=== PATIENT | female | born 1985 | race American Indian/Alaskan Native ===

== ENCOUNTER 2020-06-17 13:18 | Emergency (ER) | payer SELFPAY ==
[2020-06-17 14:24] VITALS: BP 125/78
--- NOTE | 2020-06-17 14:31 | Emergency Department Report ---
Chief Complaint: Medical Clearance Stated Complaint: CHECK UP Time Seen by Provider: 06/17/20 14:24 - HPI History of Present Illness: Patient is a 35-year-old female presents emergency room with complaints of a complication at the plasma donation center. She states that yesterday she was donating plasma and that the IV had moved from the vein and there was a little bit of clotting and bleeding present. She states that they remove the IV and there was a small amount of bleeding. She states that they gave her back her blood in her other arm. She states that she has some mild discomfort. She denies any fever, redness, increased warmth. She denies any numbness or weakness. Vitals are normal On exam: Non toxic appearing, no acute distress atraumatic, normocephalic moist mucus membranes No respiratory distress, no accessory muscle use A&O x4, no focal neuro deficit skin is warm, dry, intact, small abrasion and 0.5 cm area of ecchymosis present to the left antecubital fossa, no hematoma, no erythema, no increased warmth, no tracking of the skin, neurovascularly intact, 2+ strong distal pulses, normal right antecubital fossa Patient is presenting for checkup of a IV site where she was donating plasma There is a small area of ecchymosis but no hematoma No signs of infection Discussed supportive care and symptomatic treatment with patient Patient be referred to primary care doctor for reexamination Discussed strict return precautions Medical screening examination performed there is no threat to life or limb at this time - Exam Vital Signs: Vital Signs 06/17/20 14:18 Temperature 98.3 F Pulse Rate 77 Respiratory 18 Rate Blood Pressure 125/78 O2 Sat by Pulse 99 Oximetry MSE screening note: Focused history and physical exam performed. Due to findings the following was ordered: ED Disposition for MSE Clinical Impression: Encounter for medical screening examination Disposition: Z-07 MED SCREENING EXAM-LEFT Is pt being admited?: No Does the pt Need Aspirin: No Condition: Stable Instructions: RICE Therapy (ED) Additional Instructions: Please keep area clean and dry. May use an Silas wrap [id number] but do not wear too tightly and do not wear while sleeping. May use ice for 15 minutes at a time, rest, elevation of the arm, heating pad. Follow-up with your primary care doctor for reexamination. Return to emergency room for any new or worse anmol symptoms. Referrals: WANDA GAITAN MD [Staff Physician] - 2-3 Days [facility] [Provider Group] - 2-3 Days [facility], [LAB/CONTRACT] - 2-3 Days Time of Disposition: 14:30 Print Language: SYRIAC
== END 2020-06-17 14:59 | disposition left against medical advice (07) ==
LOC: ED 13:18
DX: Z13.9 Encounter for screening, unspecified (principal); Z53.21 Procedure and treatment not carried out due to patient leaving prior to being seen by health care provider

== ENCOUNTER 2021-09-07 11:21 | Emergency (ER) | payer SELFPAY ==
[2021-09-07 12:09] VITALS: BP 119/58
--- NOTE | 2021-09-07 14:50 | Emergency Department Report ---
ED Back Pain/Injury HPI - General Chief Complaint: Back Pain/Injury Stated Complaint: BACK PAIN Time Seen by Provider: 09/07/21 14:15 Source: patient Mode of arrival: Ambulatory Limitations: No Limitations - History of Present Illness Initial Comments: Patient is a 36-year-old female presents emergency room with complaints of right lower back pain that exacerbated over the last few days. She states that she has had intermittent back pain and this area for several years. 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 She denies any fall, injury, trauma. She denies any urinary symptoms, fever, nausea, vomiting, diarrhea, abdominal pain. No past medical history. No allergies medications. - Related Data Previous Rx's Medication Instructions Recorded Last Taken Type EPINEPHrine [Epipen 2-Zak] 0.3 mg IM ONCE PRN #2 applicatio 09/27/14 Unknown Rx Famotidine [Pepcid] 20 mg PO BID #30 tablet 09/27/14 Unknown Rx Prednisone [Prednisone 10 mg 10 mg PO .TAPER #1 tab.ds.pk 09/27/14 Unknown Rx (6-Day Pack, 21 Tabs)] diphenhydrAMINE [Benadryl] 25 mg PO Q6HR #20 capsule 09/27/14 Unknown Rx Menthol/Camphor [[place] 1 applicatio TP BID #18 gm 09/07/21 Unknown Rx Ointment] Naproxen 375 mg PO BID PRN #20 tab 09/07/21 Unknown Rx methOCARBAMOL [Robaxin TAB] 500 mg PO BID PRN #20 tab 09/07/21 Unknown Rx Allergies Allergy/AdvReac Type Severity Reaction Status Date / Time No Known Allergies Allergy Unverified 09/27/14 09:48 ED Review of Systems ROS: Stated complaint: BACK PAIN Other details as noted in HPI Comment: All other systems reviewed and negative ED Past Medical Hx - Past Medical History Previous Medical History?: No - Surgical History Past Surgical History?: No - Social History Smoking Status: Current Every Day Smoker - Medications Home Medications: Home Medications Medication Instructions Recorded Confirmed Last Taken Type EPINEPHrine [Epipen 2-Zak] 0.3 mg IM ONCE PRN #2 applicatio 09/27/14 Unknown Rx Famotidine [Pepcid] 20 mg PO BID #30 tablet 09/27/14 Unknown Rx Prednisone [Prednisone 10 mg 10 mg PO .TAPER #1 tab.ds.pk 09/27/14 Unknown Rx (6-Day Pack, 21 Tabs)] diphenhydrAMINE [Benadryl] 25 mg PO Q6HR #20 capsule 09/27/14 Unknown Rx Menthol/Camphor [[place] 1 applicatio TP BID #18 gm 09/07/21 Unknown Rx Ointment] Naproxen 375 mg PO BID PRN #20 tab 09/07/21 Unknown Rx methOCARBAMOL [Robaxin TAB] 500 mg PO BID PRN #20 tab 09/07/21 Unknown Rx ED Physical Exam - General Limitations: No Limitations General appearance: alert, in no apparent distress - Head Head exam: Present: atraumatic, normocephalic - Eye Eye exam: Present: normal appearance - ENT ENT exam: Present: mucous membranes moist - Neck Neck exam: Present: normal inspection, full ROM. Absent: tenderness, meningismus - Respiratory Respiratory exam: Present: normal lung sounds bilaterally. Absent: respiratory distress, wheezes, rales, rhonchi, stridor, chest wall tenderness, accessory muscle use, decreased breath sounds, prolonged expiratory - Cardiovascular Cardiovascular Exam: Present: regular rate, normal rhythm, normal heart sounds. Absent: systolic murmur, diastolic murmur, rubs, gallop - Back Exam Back exam: Present: normal inspection, full ROM, paraspinal tenderness (right sided lumbar paraspinal ttp, no midline c-spine, t-spine or l-spine ttp, no step offs, no deformities). Absent: vertebral tenderness - Neurological Exam Neurological exam: Present: alert, oriented X3, CN II-XII intact, normal gait. Absent: motor sensory deficit - Psychiatric Psychiatric exam: Present: normal affect, normal mood - Skin Skin exam: Present: warm, dry, intact ED Course Vital Signs 09/07/21 12:06 Temperature 98.6 F Pulse Rate 72 Respiratory 16 Rate Blood Pressure 119/58 [Left] O2 Sat by Pulse 98 Oximetry ED Medical Decision Making - Medical Decision Making Patient is a 36-year-old female presents emergency room with complaints of right lower back pain that exacerbated over the last few days. She states that she has had intermittent back pain and this area for several years. 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 She denies any fall, injury, trauma. She denies any urinary symptoms, fever, nausea, vomiting, diarrhea, abdominal pain. No past medical history. No allergies medications. Vitals are normal. On exam:right sided lumbar paraspinal ttp, no midline c-spine, t-spine or l- spine ttp, no step offs, no deformities, no focal neuro deficits, ambulatory without difficulty. UA is within normal limits. Urine is negative. Patient has no red flag warning signs of back pain, no trauma, no unexplained weight loss, no fever, no IV drug use, no steroid use, no history of cancer, age is not greater than 50. Patient given prescription for medication. Advised patient Please use medication as prescribed. May use ice pack, heating pad, rest, epsom salt bath. Do not use heat or ice while using Forest balm. Follow- up with your primary care doctor. Follow-up with a hospital cleaning specialist. Return to emergency room for any new or worsening symptoms. Critical care attestation.: If time is entered above; I have spent that time in minutes in the direct care of this critically ill patient, excluding procedure time. ED Disposition Clinical Impression: Back pain Qualifiers: Back pain location: low back pain Chronicity: acute Back pain laterality: right Sciatica presence: without sciatica Qualified Code(s): M54.50 - Low back pain, unspecified Disposition: 01 HOME / SELF CARE / HOMELESS Is pt being admited?: No Does the pt Need Aspirin: No Condition: Stable Instructions: Acute Back Pain, Adult Additional Instructions: Please use medication as prescribed. May use ice pack, heating pad, rest, epsom salt bath. Do not use heat or ice while using Forest balm. Follow-up with your primary care doctor. Follow-up with a hospital cleaning specialist. Return to emergency room for any new or worsening symptoms. Prescriptions: Naproxen 375 mg PO BID PRN #20 tab PRN Reason: pain methOCARBAMOL [Robaxin TAB] 500 mg PO BID PRN #20 tab PRN Reason: muscle spasm/pain Menthol/Camphor [[place] Ointment] 1 applicatio TP BID #18 gm Referrals: PRIMARY CAREMD [Primary Care Provider] - 3-5 Days CLAUDETTE CHIU II, MD [Staff Physician] - 3-5 Days Forms: Work/School Release Form(ED) Time of Disposition: 16:22 Print Language: SYRIAC
[2021-09-07 15:48] LABS: HCG Qualitative,Urine Negative (Negative)
[2021-09-07 16:14] LABS: Bilirubin,Urine NEG (Negative); Blood,Urine NEG (Negative); Color,Urine Yellow (Yellow); Mucus,Urine FEW /HPF; Protein,Urine <15 mg/dL mg/dL (Negative); Urobilinogen,Urine < 2.0 mg/dL (<2.0); WBC,Urine < 1.0 /HPF (0.0-6.0)
== END 2021-09-07 16:37 | disposition home or self-care (01) ==
LOC: ED 11:21
DX: M54.50 Low back pain, unspecified (principal); F17.200 Nicotine dependence, unspecified, uncomplicated
CPT/HCPCS: 81001; 81025; 99283

== ENCOUNTER 2021-11-01 15:30 | Emergency (ER) | payer SELFPAY ==
[2021-11-01 15:47] VITALS: BP 118/82
[2021-11-01] MEDS ORDERED: predniSONE 20 MG TAB PO ONE (16:54)
[2021-11-01] MEDS ORDERED: IBUPROFEN 600 MG TAB PO ONE (16:54)
[2021-11-01] MEDS ORDERED: GABAPENTIN 300 MG CAP PO ONE (16:55)
--- NOTE | 2021-11-01 18:19 | Vascular Lab Report ---
DUPLEX DOPPLER LOWER EXTREMITY VEINS, RIGHT INDICATION / CLINICAL INFORMATION: LEFT LEG PAIN. TECHNIQUE: Duplex doppler imaging was performed through the veins of the right lower extremity using venous compression and other maneuvers. COMPARISON: None available. FINDINGS: RIGHT COMMON FEMORAL VEIN: Negative. RIGHT FEMORAL VEIN: Negative. RIGHT POPLITEAL VEIN: Negative. RIGHT CALF VEINS: Negative. ADDITIONAL FINDINGS: None. IMPRESSION: 1. No sonographic evidence for DVT in the right lower extremity. Signer Name: Júnior Stock DO Signed: 11/01/2021 6:15 PM Workstation Name: [id number]
--- NOTE | 2021-11-01 19:04 | Emergency Department Report ---
ED Extremity Problem HPI - General Chief complaint: Extremity Problem,Nontraumatic Stated complaint: NO USE OF RT LEG/NUMBNESS Source: patient Mode of arrival: Wheelchair Limitations: No Limitations - History of Present Illness Initial comments: Patient is a 36-year-old -[place] female with a history of chronic low back pain with right-sided sciatica who presents to the ED with complaint of acute exacerbation of her chronic low back pain that radiates to the right leg for the last 1 week. Patient also complains of acute onset anterior right thigh and posterior right calf tenderness with mild ecchymosis on the anterior right thigh for the last 2 days. Patient states that she got concerned and wanted to be evaluated for suspected DVT. Patient denies fall, traumatic injury, nausea and vomiting, chest pain, shortness of breath, numbness and tingling or weakness of lower and upper extremities bilaterally, neck pain, abdominal pain, dysuria, urinary frequency and urgency or heavy lifting. MD Complaint: extremity pain (Right leg and thigh pain), other (Chronic low back pain with sciatica) -: Sudden, week(s) (1) Location: right, lower extremity, other (Right lower leg and thigh pain with bruises) History of Same: No -: Yes arthralgia Radiation: distal Severity scale (0 -10): 10 Quality: aching, sharp Consistency: constant Improves with: nothing, movement Worsens with: weight bearing, walking, exertion, palpation Associated Symptoms: denies other symptoms, arthralgias. denies: chest pain, shortness of breath, fever, myalgias, rash, other - Related Data Previous Rx's Medication Instructions Recorded Last Taken Type EPINEPHrine [Epipen 2-Zak] 0.3 mg IM ONCE PRN #2 applicatio 09/27/14 Unknown Rx Famotidine [Pepcid] 20 mg PO BID #30 tablet 09/27/14 Unknown Rx Prednisone [Prednisone 10 mg 10 mg PO .TAPER #1 tab.ds.pk 09/27/14 Unknown Rx (6-Day Pack, 21 Tabs)] diphenhydrAMINE [Benadryl] 25 mg PO Q6HR #20 capsule 09/27/14 Unknown Rx Menthol/Camphor [Donie [place] 1 applicatio TP BID #18 gm 09/07/21 Unknown Rx Ointment] Naproxen 375 mg PO BID PRN #20 tab 09/07/21 Unknown Rx methOCARBAMOL [Robaxin TAB] 500 mg PO BID PRN #20 tab 09/07/21 Unknown Rx Gabapentin 300 mg PO DAILY #30 cap 11/01/21 Unknown Rx Ibuprofen [Motrin] 800 mg PO Q8HR PRN #30 tablet 11/01/21 Unknown Rx predniSONE [Deltasone] 60 mg PO QDAY #15 tab 11/01/21 Unknown Rx Allergies Allergy/AdvReac Type Severity Reaction Status Date / Time No Known Allergies Allergy Unverified 09/27/14 09:48 ED Review of Systems ROS: Stated complaint: NO USE OF RT LEG/NUMBNESS Other details as noted in HPI Constitutional: denies: chills, fever Eyes: denies: eye pain, eye discharge, vision change ENT: denies: ear pain, throat pain Respiratory: denies: cough, shortness of breath, wheezing Cardiovascular: denies: chest pain, palpitations Endocrine: no symptoms reported Gastrointestinal: denies: abdominal pain, nausea, diarrhea Genitourinary: denies: urgency, dysuria, discharge Musculoskeletal: back pain (Chronic low back pain with right-sided sciatica), arthralgia (Right leg and thigh pain). denies: joint swelling Skin: denies: rash, lesions Neurological: denies: headache, weakness, paresthesias Psychiatric: denies: anxiety, depression Hematological/Lymphatic: denies: easy bleeding, easy bruising ED Past Medical Hx - Past Medical History Previous Medical History?: Yes Additional medical history: Chronic low back pain with right-sided sciatica - Social History Smoking Status: Current Every Day Smoker - Medications Home Medications: Home Medications Medication Instructions Recorded Confirmed Last Taken Type EPINEPHrine [Epipen 2-Zak] 0.3 mg IM ONCE PRN #2 applicatio 09/27/14 Unknown Rx Famotidine [Pepcid] 20 mg PO BID #30 tablet 09/27/14 Unknown Rx Prednisone [Prednisone 10 mg 10 mg PO .TAPER #1 tab.ds.pk 09/27/14 Unknown Rx (6-Day Pack, 21 Tabs)] diphenhydrAMINE [Benadryl] 25 mg PO Q6HR #20 capsule 09/27/14 Unknown Rx Menthol/Camphor [Donie [place] 1 applicatio TP BID #18 gm 09/07/21 Unknown Rx Ointment] Naproxen 375 mg PO BID PRN #20 tab 09/07/21 Unknown Rx methOCARBAMOL [Robaxin TAB] 500 mg PO BID PRN #20 tab 09/07/21 Unknown Rx Gabapentin 300 mg PO DAILY #30 cap 11/01/21 Unknown Rx Ibuprofen [Motrin] 800 mg PO Q8HR PRN #30 tablet 11/01/21 Unknown Rx predniSONE [Deltasone] 60 mg PO QDAY #15 tab 11/01/21 Unknown Rx ED Physical Exam - General Limitations: No Limitations General appearance: alert, in no apparent distress - Head Head exam: Present: atraumatic, normocephalic, normal inspection - Eye Eye exam: Present: normal appearance, PERRL, EOMI Pupils: Present: normal accommodation - ENT ENT exam: Present: normal exam, normal orophraynx, mucous membranes moist, TM's normal bilaterally, normal external ear exam - Neck Neck exam: Present: normal inspection, full ROM. Absent: tenderness - Respiratory Respiratory exam: Present: normal lung sounds bilaterally. Absent: respiratory distress, wheezes, rales, rhonchi, stridor, chest wall tenderness, accessory muscle use, decreased breath sounds - Cardiovascular Cardiovascular Exam: Present: normal rhythm, tachycardia, normal heart sounds. Absent: systolic murmur, diastolic murmur, rubs, gallop - GI/Abdominal GI/Abdominal exam: Present: soft, normal bowel sounds. Absent: distended, tenderness, guarding, hyperactive bowel sounds, hypoactive bowel sounds, organomegaly, bruit - Extremities Exam Extremities exam: Present: normal inspection, full ROM, tenderness (Palpable right thigh and calf tenderness), normal capillary refill. Absent: pedal edema, joint swelling, calf tenderness - Back Exam Back exam: Present: normal inspection, full ROM, tenderness (Palpable lumbosacral paraspinal musculoskeletal tenderness), muscle spasm, paraspinal tenderness. Absent: CVA tenderness (R), CVA tenderness (L), vertebral tenderness, rash noted - Neurological Exam Neurological exam: Present: alert, oriented X3, CN II-XII intact, normal gait, reflexes normal - Psychiatric Psychiatric exam: Present: normal affect, normal mood - Skin Skin exam: Present: warm, dry, intact, normal color, ecchymosis (Anterior right thigh ecchymosis with localized palpable tenderness). Absent: rash ED Course Vital Signs 11/01/21 15:46 Temperature 98.2 F Pulse Rate 109 H Respiratory 18 Rate Blood Pressure 118/82 [Right] O2 Sat by Pulse 98 Oximetry ED Medical Decision Making - Radiology Data Radiology results: report reviewed, image reviewed [facility] [address] [place] [address] Vascular Lab Report Signed Patient: CONNIE REECE MR#: [id number] : 1985 Acct:[id number] Age/Sex: 36 / F ADM Date: 11/01/21 Loc: ED Attending Dr: Ordering Physician: RODNEY DOTSON Date of Service: 11/01/21 Procedure(s): VL venous duplex LE RT Accession Number(s): [id number] cc: RODNEY DOTSON DUPLEX DOPPLER LOWER EXTREMITY VEINS, RIGHT INDICATION / CLINICAL INFORMATION: LEFT LEG PAIN. TECHNIQUE: Duplex doppler imaging was performed through the veins of the right lower extremity using venous compression and other maneuvers. COMPARISON: None available. FINDINGS: RIGHT COMMON FEMORAL VEIN: Negative. RIGHT FEMORAL VEIN: Negative. RIGHT POPLITEAL VEIN: Negative. RIGHT CALF VEINS: Negative. ADDITIONAL FINDINGS: None. IMPRESSION: 1. No sonographic evidence for DVT in the right lower extremity. Signer Name: Júnior Fall DO Signed: 11/01/2021 6:15 PM Workstation Name: [id number] Transcribed By: TONY Dictated By: JÚNIOR FALL DO Electronically Authenticated By: JÚNIOR FALL DO Signed Date/Time: 11/01/211814 DD/ 14 TD/TT: - Medical Decision Making This is a 36-year-old -[place] female with a history of chronic low back pain with right-sided sciatica who presents to the ED with complaint of acute exacerbation of her chronic low back pain that radiates to the right leg for the last 1 week. Patient also complains of acute onset anterior right thigh and posterior right calf tenderness with mild ecchymosis on the anterior right thigh for the last 2 days. Patient states that she got concerned and wanted to be evaluated for suspected DVT. In the ED, patient is alert and oriented x3 and is not in any distress. Patient was treated for pain in the ED and right leg Doppler ultrasound showed no sonographic evidence of DVT. Patient symptoms are likely due to muscle strain and complications of chronic low back pain with right-sided sciatica. Patient was advised return to the ED immediately if symptoms get worse. Patient will otherwise advised to follow-up with her primary care physician in 7 to 10 days for reevaluation. - Differential Diagnosis muscle strain; sciatica; muscle spasm; DVT Critical care attestation.: If time is entered above; I have spent that time in minutes in the direct care of this critically ill patient, excluding procedure time. ED Disposition Clinical Impression: Spasm of muscle of lower back Muscle strain of right lower extremity Qualifiers: Encounter type: initial encounter Qualified Code(s): S86.911A - Strain of unspecified muscle(s) and tendon(s) at lower leg level, right leg, initial encounter Chronic low back pain with right-sided sciatica Qualifiers: Back pain laterality: right Qualified Code(s): M54.41 - Lumbago with sciatica, right side; G89.29 - Other chronic pain Disposition: HOME / SELF CARE / HOMELESS Is pt being admited?: No Does the pt Need Aspirin: No Condition: Stable Instructions: Muscle Strain, [id number], Chronic Back Pain, [id number], Sciatica, [id number], Muscle Cramps and Spasms, [id number] Additional Instructions: The right leg Doppler ultrasound showed no sonographic evidence of DVT. Therefore your symptoms are likely musculoskeletal. Therefore take medications with food, drink plenty of fluids and follow-up with your primary care physician in 7 to 10 days for reevaluation. Return to the ED immediately if symptoms get worse. Prescriptions: predniSONE [Deltasone] 60 mg PO QDAY #15 tab Gabapentin 300 mg PO DAILY #30 cap Ibuprofen [Motrin] 800 mg PO Q8HR PRN #30 tablet PRN Reason: Pain , Severe (7-10) Referrals: WANDA GAITAN MD [Primary Care Provider] - 3-5 Days Time of Disposition: 19:07 Print Language: QATARI
== END 2021-11-01 19:38 | disposition home or self-care (01) ==
LOC: ED 15:30
DX: S86.911A Strain of unspecified muscle(s) and tendon(s) at lower leg level, right leg, initial encounter (principal); M62.830 Muscle spasm of back; M54.41 Lumbago with sciatica, right side; G89.29 Other chronic pain; F17.200 Nicotine dependence, unspecified, uncomplicated; Z79.899 Other long term (current) drug therapy
CPT/HCPCS: 99283